=== PATIENT | female | born 1985 | race Two or more races ===

== ENCOUNTER 2018-09-03 08:36 | Day surgery (SDC) | payer BC, MEDICAID ==
[2018-08-30 14:38] LABS: BASOPHILS # (AUTO) 0.1 X10'3 (0-0.2); BASOPHILS % (AUTO) 1.2 % (0-1); EOSINOPHILS # (AUTO) 0.3 X10'3 (0-0.9); EOSINOPHILS % (AUTO) 3.1 % (0-6); LYMPHOCYTES # (AUTO) 3.3 X10'3 (1.1-4.8); LYMPHOCYTES % (AUTO) 40.3 % (21-51); MEAN CORPUSCULAR HEMOGLOBIN 30.5 PG (27.0-31.0); MEAN CORPUSCULAR VOLUME 89.8 FL (78-98); MEAN PLATELET VOLUME 7.9 FL (7.4-10.4); MONOCYTES # (AUTO) 0.6 X10'3 (0-0.9); MONOCYTES % (AUTO) 7.3 % (2-12); NEUTROPHILS % (AUTO) 48.1 % (42-75); PRE OP HEMATOCRIT 43.1 % (35.0-45.0); PRE OP HEMOGLOBIN 14.6 g/dL (12.0-16.0); PRE OP PLATELET COUNT 317 X10'3 (140-440); RED CELL DISTRIBUTION WIDTH 12.6 % (11.5-14.5)
[2018-08-30 14:55] LABS: PRE OP PROTIME 10.5 SECONDS (9.0-12.0)
[2018-08-30 15:01] LABS: HCG SERUM QL NEGATIVE
[2018-09-03] VITALS (17 sets, daily range): BP systolic 111–137; BP diastolic 60–81
[~2018-09-03] VITALS: Ht 162.6 cm; Wt 86.6 kg
[~2018-09-03 08:36] MED LIST: NO HOME MEDS; cefotetan 2gm/isosm dext IVPB 50 ML IV ONE; famotidine 20mg tablet PO ONE; ringers solution, lacted 1,000 ML IV SCH
[2018-09-03] MEDS ORDERED: clindamycin phosphate 40gm vag cream ONE (09:36)
[2018-09-03] MEDS ORDERED: LIDOcaine 1% 30ml preserv. free vial ONE (09:36)
[2018-09-03] MEDS ORDERED: morphine 10mg/ml inj. ONE (09:36)
[2018-09-03] MEDS ORDERED: ceFAZolin 1000mg inj ONE (09:36)
[2018-09-03] MEDS ORDERED: BUPIVAcaine/PF 2.5mg/ml (0.25%) 10ml vial ONE (09:36)
[2018-09-03] MEDS ORDERED: vasoPRESSIN 20 units/ml inj. ONE (09:37)
[2018-09-03] MEDS ORDERED: rocuronium 10mg/ml inj IV ONE ×2 (10:45→11:02)
[2018-09-03] MEDS ORDERED: flumazenil 0.1 mg/ml inj. IV ONE (10:45)
[2018-09-03] MEDS ORDERED: sevoflurane 250ml liquid IH ONE (10:45)
[2018-09-03] MEDS ORDERED: neostigmine methylsulfate 1 MG/ML 10ml vial ONE (10:45)
[2018-09-03] MEDS ORDERED: dexamethasone sod phosphate 10mg/ml inj ONE (10:45)
[2018-09-03] MEDS ORDERED: glycopyrrolate 0.2mg/ml inj ONE (10:45)
[2018-09-03] MEDS ORDERED: fentaNYL/PF 50MCG/1 ML 2ML syringe ONE (10:52)
[2018-09-03] MEDS ORDERED: midazolam 2 mg/2 ml injection ONE (10:52)
[2018-09-03] MEDS ORDERED: LIDOcaine 2% (20mg/ml) 5ml vial ONE (11:02)
[2018-09-03] MEDS ORDERED: propofol inj 20 ML IV ONE (11:02)
[2018-09-03] MEDS ORDERED: ondansetron/PF 4mg/2ml inj ONE (11:03)
[2018-09-03] MEDS ORDERED: ringers solution, lacted 1,000 ML IV SCH (12:59)
[2018-09-03] MEDS ORDERED: morphine 4 MG/ML inj SYRINge IV PRN ×2 (13:00)
[2018-09-03] MEDS ORDERED: ondansetron/PF 4mg/2ml inj IV PRN ×2 (13:00→13:35)
[2018-09-03] MEDS ORDERED: labetalol 20mg/4ml (5mg/ml) syringe IV PRN (13:00)
[2018-09-03] MEDS ORDERED: fentaNYL/PF 50MCG/1 ML 2ML syringe IV PRN ×2 (13:00)
[2018-09-03] MEDS ORDERED: hydrALAZINE 20mg/ml inj. IV PRN (13:00)
[2018-09-03] MEDS ORDERED: meperidine/PF 50mg/ml syringe ONE (13:17)
[2018-09-03] MEDS ORDERED: CADD PCA waste documentation MC PRN (13:35)
[2018-09-03] MEDS ORDERED: normal saline 500ml IV soln 500 ML IV PRN (13:35)
[2018-09-03] MEDS ORDERED: temazepam 15mg capsule PO PRN (13:35)
[2018-09-03] MEDS ORDERED: naloxone 0.4 mg/ml inj IV PRN (13:35)
[2018-09-03] MEDS ORDERED: HYDROcodone/acetaminophen 5mg/325mg tablet PO PRN (13:35)
[2018-09-03] MEDS ORDERED: magnesium hydroxide 30ml (MOM) UD suspension PO PRN (13:35)
[2018-09-03] MEDS ORDERED: diphenhydrAMINE 50 mg/ml inj IV PRN (13:35)
--- NOTE | 2018-09-03 13:35 | NUR ---
Received from OR via bed, accompanied by Anesthesiologist. Report received. Initial physical assessment done and recorded.
[2018-09-03] MEDS: ketorolac trometh. 30mg/ml inj. IV PRN ×2 (13:54→21:20)
[2018-09-03] MEDS: HYDROmorphone/NS 1 mg/ml CADD 50 ML IV SCH ×6 (14:13→23:00)
[2018-09-03] MEDS ORDERED: HYDROmorphone/NS 1 mg/ml CADD 50 ML IV SCH (15:00)
--- NOTE | 2018-09-03 15:00 | NUR ---
Discharge criteria met, report to receiving floor. Transferred to room in stable condition.
--- NOTE | 2018-09-03 15:30 | NUR ---
Patient to room 348 A from the OR. Patient in no apparent distress on 2L NC. Patient bedside. Will continue to monitor patient.
[2018-09-03] MEDS: ringers solution, lacted 1,000 ML IV SCH (16:57)
--- NOTE | 2018-09-03 18:45 | NUR ---
Problems reprioritized. Patient report given, questions answered & plan of care reviewed with BEAU Hanson.
--- NOTE | 2018-09-03 18:45 | NUR ---
Patient in room [facility]. I have received report from MARCELLUS YANEZ and had the opportunity to ask questions and assume patient care. Addendum: 09/03/18 at 1845 by Margie Ferris RN Amended: Links added.
--- NOTE | 2018-09-03 20:45 | NUR ---
up ambulating in the ingram after tolerating cl liq diet. pt did 2 full laps around then stated tired and wanted to rest. had taken her dss as well. pt with scant drainage on the pad and lap sites D/I. steristrips in place.
--- NOTE | 2018-09-03 21:10 | NUR ---
DR PINTO CALLED TO CHECK ON PT STATUS AND AWARE OF AMBULATION TOLERATING CL LIQ DIET WELL. AND THAT SET UP AT THE [facility] SINCE THEY LIVE IN [place].
[2018-09-03] MEDS: docusate sod 100mg capsule PO SCH (21:20)
--- NOTE | 2018-09-03 21:30 | NUR ---
PT MEDICATED WITH IV TORADOL FOR PAIN THEN AFTER THIS LEFT FOR THE [facility].
--- NOTE | 2018-09-03 22:30 | NUR ---
PT RESTING WITHOUT CHANGES OR S&S OF DISTRESS AT THIS TIME.
[2018-09-04] VITALS (15 sets, daily range): BP systolic 104–126; BP diastolic 58–81
--- NOTE | 2018-09-04 00:20 | NUR ---
new bag lr infusing pt resting eyes closed without changes.
[2018-09-04] MEDS: ringers solution, lacted 1,000 ML IV SCH ×3 (00:33→13:32)
[2018-09-04] MEDS: HYDROmorphone/NS 1 mg/ml CADD 50 ML IV SCH ×3 (01:00→05:00)
--- NOTE | 2018-09-04 02:00 | NUR ---
resting eyes closed without changes.
--- NOTE | 2018-09-04 03:27 | NUR ---
remains resting without changes.
--- NOTE | 2018-09-04 04:35 | NUR ---
pt up with assistance ambulated 3 laps in the ingram and using cadd for pain control. assisted back to bed. lab mariusz her blood.
--- NOTE | 2018-09-04 04:50 | NUR ---
benitez balloon deflated and removed noted cath intact. then packing removed. pt tolerated well. after this pt passed gas. requested to get up to the bathroom. pt unable to void at this time. juice given to drink using cadd for pain control.
[2018-09-04 05:09] LABS: BASOPHILS % (AUTO) 0.2 % (0-1); EOSINOPHILS % (AUTO) 0.1 % (0-6); HEMATOCRIT 38.9 % (35.0-45.0); LYMPHOCYTES # (AUTO) 1.7 X10'3 (1.1-4.8); LYMPHOCYTES % (AUTO) 11.2 % (21-51); MEAN CORPUSCULAR HGB CONC 33.4 g/dL (33.0-36.5); MEAN CORPUSCULAR VOLUME 89.7 FL (78-98); MEAN PLATELET VOLUME 7.8 FL (7.4-10.4); MONOCYTES % (AUTO) 6.6 % (2-12); NEUTROPHILS # (AUTO) 12.3 X10'3 (1.8-7.7); NEUTROPHILS % (AUTO) 81.9 % (42-75); PLATELET COUNT 258 X10'3 (140-440); RED BLOOD COUNT 4.33 X10'6 (4.20-5.60)
--- NOTE | 2018-09-04 05:38 | NUR ---
up with assist brp void 10cc and had large clot from vag vault. pt bladder scanned 1cc tolerated well drinking juice.
--- NOTE | 2018-09-04 06:12 | NUR ---
0600 pt called Rn in the room had saturated 2 pads and part of a chux and under pants. she had saturated 2 pads before this. and large jelly like clot in the hat when using the bathroom. call to Dr Cloud to notify him of this. no orders taken his Pa will be in shortly. notified of h&h 13.0, 38.9.
--- NOTE | 2018-09-04 06:25 | NUR ---
Dr Cloud called back to get pt ready for the operating room this am. viatls being taken. pt saturated 2 more peripads and an abd pad. reported this to Dayanna velazquez and PLASTIC PANEL INSTALLER doing quinn wipes to prepare her for the operating room.
--- NOTE | 2018-09-04 06:34 | NUR ---
Problems reprioritized. Patient report given, questions answered & plan of care reviewed with Dayanna Gimenez. Addendum: 09/04/18 at 0635 by Margie Ferris RN Amended: Links added.
--- NOTE | 2018-09-04 06:40 | NUR ---
pt taken off the floor and taken to the operating room with the or crew.
--- NOTE | 2018-09-04 07:00 | NUR ---
Patient in room [facility]. I have received report from BEAU Hanson and had the opportunity to ask questions and assume patient care. Patient is bleeding a significant amount from the surgery yesterday. Margie YANEZ already contacted Dr. Cloud and will be taking patient back to surgery this morning. VSS. Patient alert and oriented. Will continue to monitor.
[2018-09-04] MEDS ORDERED: midazolam 2 mg/2 ml injection ONE (07:03)
[2018-09-04] MEDS ORDERED: fentaNYL /PF 50mcg/ml 5ml ampule ONE (07:04)
[2018-09-04] MEDS ORDERED: ketamine 10mg/ml 20ml inj ONE (07:06)
[2018-09-04] MEDS ORDERED: propofol inj 20 ML IV ONE (07:55)
--- NOTE | 2018-09-04 07:55 | NUR ---
Received from OR via BED , accompanied by Anesthesiologist DR WILSON and report given by Anesthesiolgist. PATIENT WAKING UP, C/O PAIN SEE EMAR, V/S WNL, NEUROVASCULAR CHECKS INTACT, 20G PIV RUE, SCD ON, WITH PERIPAD WITH SCANT DRAINAGE CDI.
[2018-09-04 08:10] LABS: ISTAT ANION GAP 11 (8-12); ISTAT BUN 6 mg/dL (6-19); ISTAT CL 102 mmol/L (99-107); ISTAT CREATININE 0.6 mg/dL (0.6-1.1); ISTAT GLUCOSE 108 mg/dL (70-104); ISTAT HGB 10.2 g/dl (12.0-16.0); ISTAT Hct 30 %PCV (35-48); ISTAT IONIZED CALCIUM 1.25 mmol/L (1.03-1.32); ISTAT K 4.1 mmol/L (3.5-5.1); ISTAT NA 140 mmol/L (135-145); ISTAT TOTAL CO2 27 mmol/L (24-32); ISTAT eGFR > 90 ML/MIN
--- NOTE | 2018-09-04 08:30 | NUR ---
Patient returned from OR. Patient alert and oriented at this time. VSS. Call light and items of frequent use in reach of patient.
[2018-09-04] MEDS: ketorolac trometh. 30mg/ml inj. IV PRN (10:15)
[2018-09-04] MEDS: docusate sod 100mg capsule PO SCH (10:16)
--- NOTE | 2018-09-04 10:30 | NUR ---
Patient bladder scanned and post void residual was 489. Patient informed that a new FC will more than likely have to be placed. Patient stated that she feels like she has to void again and asked for another chance. Will reassess bladder after next void.
--- NOTE | 2018-09-04 12:00 | NUR ---
Bladder scanned for post void residual for a total of 99 in bladder after first scan and 95 in bladder after second scan. Will continue to monitor patient.
[2018-09-04] MEDS: HYDROcodone/acetaminophen 5mg/325mg tablet PO PRN ×2 (12:40→19:16)
--- NOTE | 2018-09-04 15:00 | NUR ---
Bladder scanned patient after void and 400 in bladder after first scan and 393 in bladder after second scan. New benitez catheter placed per protocol and patient will be going home with it in place.
--- NOTE | 2018-09-04 18:40 | NUR ---
Dr. Cloud in to see patient. Patient has discharge orders written. Will discharge patient.
--- NOTE | 2018-09-04 18:57 | NUR ---
Problems reprioritized. Patient report given, questions answered & plan of care reviewed with BEAU Vieyra.
--- NOTE | 2018-09-04 19:27 | NUR ---
Patient discharged this evening. All instruction given to and explained to patient. Print out instructions for F/C care. Patient given a leg bag upon discharge. Is aware to be following up with Dr. Cloud regarding her FC. All belongings taken. Patient wheel chair down to private vehicle by nursing staff.
== END 2018-09-04 19:25 | disposition home or self-care (01) ==
LOC: PAS 08:36 → SUR 3N 13:32 → PAS 09-04 19:25
PROVIDERS: ATTEND Specialist
DX: N81.4 Uterovaginal prolapse, unspecified (principal); N81.6 Rectocele; N39.3 Stress incontinence (female) (male); K66.0 Peritoneal adhesions (postprocedural) (postinfection); N88.0 Leukoplakia of cervix uteri; Z98.51 Tubal ligation status; G43.909 Migraine, unspecified, not intractable, without status migrainosus; N36.42 Intrinsic sphincter deficiency (ISD); Z98.890 Other specified postprocedural states; Z79.899 Other long term (current) drug therapy
CPT/HCPCS: 36415; 57260; 57283; 57288; 58552; 80047; 82948; 84703; 85025; 85610; 85730; 86885; 86900; 86901; A6255; A6402; C1771; J0690; J1100; J1170; J1885; J2001; J2175; J2250; J2270; J2405; J2704; J2710; J3010; J3490; J7120; A4315; A4344; A4355; A6250; A7000; G0378; J7030